=== PATIENT | female | born 1990 | race Caucasian/White ===

== ENCOUNTER → 2017-08-25 | Outpatient (REF) | payer OTHER ==
[2017-08-25 16:54] LABS: ALBUMIN 4.4 GM/DL (3.2-5.2); ALKALINE PHOSPHATASE 48 U/L (45-117); ALT/SGPT 35 U/L (12-78); ANION GAP 10 MEQ/L (8-16); AST/SGOT 27 U/L (7-37); BILIRUBIN,TOTAL 0.9 MG/DL (0.2-1.0); BLOOD UREA NITROGEN 11 MG/DL (7-18); CALCIUM LEVEL 9.1 MG/DL (8.5-10.1); CARBON DIOXIDE LEVEL 27 MEQ/L (21-32); CHLORIDE LEVEL 100 MEQ/L (98-107); CHOLESTEROL LEVEL 202 MG/DL (<200); CHOLESTEROL RISK RATIO 3.311 (<5); CREATININE FOR GFR 0.59 MG/DL (0.55-1.02); GLOMERULAR FILTRATION RATE > 60.0 (>60); GLUCOSE, FASTING 72 MG/DL (70-105); HDL CHOLESTEROL 61 MG/DL (>40); LDL CHOLESTEROL 126.4 MG/DL (<100); NON-HDL-C 141 MG/DL; POTASSIUM SERUM 4.1 MEQ/L (3.5-5.1); SODIUM LEVEL 137 MEQ/L (136-145); TOTAL PROTEIN 8.4 GM/DL (6.4-8.2); TRIGLYCERIDES LEVEL 73 MG/DL (<150)
[2017-08-26 10:47] LABS: RUBELLA IgG QUALITATIVE IMMUNE (IMMUNE)
[2017-08-27 08:07] LABS: MUMPS VIRUS IgG ANTIBODY 34.7 AU/mL (Immune >10.9)
== END ==
LOC: M LAB REF 15:39
DX: Z00.01 Encounter for general adult medical examination with abnormal findings (principal)

== ENCOUNTER → 2017-11-05 | Outpatient (REF) | payer BC | LOC: M LAB REF 16:27 | DX: J06.9 Acute upper respiratory infection, unspecified (principal) ==

== ENCOUNTER → 2018-02-02 | Outpatient (REF) | payer BC ==
[2018-02-10 09:18] LABS: HPV HYBRID CAPTURE II Positive (Negative)
== END ==
LOC: M LAB REF 17:28
DX: Z00.01 Encounter for general adult medical examination with abnormal findings (principal); Z12.4 Encounter for screening for malignant neoplasm of cervix
CPT/HCPCS: G0123

== ENCOUNTER → 2018-03-08 | Outpatient (REF) | payer BC | LOC: M SFHCWAGY 11:15 | DX: R87.810 Cervical high risk human papillomavirus (HPV) DNA test positive (principal); R87.610 Atypical squamous cells of undetermined significance on cytologic smear of cervix (ASC-US) | CPT/HCPCS: 88305 ==

== ENCOUNTER → 2018-09-07 | Outpatient (REF) | payer BC | LOC: M LAB REF 19:22 | PROVIDERS: ATTEND Nurse Practitioner Family | DX: R10.2 Pelvic and perineal pain (principal); R10.9 Unspecified abdominal pain ==

== ENCOUNTER → 2018-09-09 | Outpatient (REF) | payer BC ==
[2018-09-09 21:00] LABS: CHLAMYDIA DNA AMPLIFICATION NEGATIVE (NEGATIVE); GC DNA AMPLIFICATION NEGATIVE (NEGATIVE)
== END ==
LOC: M SFHCWAGY 17:14
PROVIDERS: ATTEND Nurse Practitioner Women's Health
DX: R10.2 Pelvic and perineal pain (principal)

== ENCOUNTER → 2018-11-08 | Outpatient (REF) | payer BC ==
[2018-11-08 14:02] LABS: INFLUENZA A AMPLIFICATION POSITIVE (NEGATIVE); INFLUENZA B AMPLIFICATION NEGATIVE (NEGATIVE)
== END ==
LOC: M LAB REF 13:00
PROVIDERS: ATTEND Physician Assistant Medical
DX: J11.1 Influenza due to unidentified influenza virus with other respiratory manifestations (principal)

== ENCOUNTER → 2019-02-01 | Outpatient (CLI) | payer BC ==
[2019-02-01 16:05] LABS: BASO % 0.5 % (0.0-1.0); EOS # 0.4 10^3/uL (0.0-0.50); EOS % 6.4 % (0.0-3.0); HEMOGLOBIN 12.9 g/dl (12.0-15.5); LYMPH # 2.6 10^3/uL (1.5-4.5); LYMPH % 41.5 % (24.0-44.0); MEAN CORPUSCULAR HEMOGLOBIN 30.8 pg (27.0-33.0); MEAN CORPUSCULAR HGB CONC 33.1 g/dl (32.0-36.5); MEAN CORPUSCULAR VOLUME 93.1 fl (80.0-96.0); MONO # 0.4 10^3/uL (0.0-0.8); MONO % 7.1 % (0.0-5.0); NEUTROPHILS # 2.8 10^3/uL (1.8-7.7); NEUTROPHILS % 44.3 % (36.0-66.0); PLATELET COUNT, AUTOMATED 261 10^3/uL (150-450); RED BLOOD COUNT 4.19 10^6/uL (4.00-5.40); WHITE BLOOD COUNT 6.2 10^3/uL (4.0-10.0)
[2019-02-01 16:21] LABS: ALBUMIN 3.7 GM/DL (3.2-5.2); ALT/SGPT 19 U/L (12-78); BILIRUBIN,TOTAL 0.6 MG/DL (0.2-1.0); BLOOD UREA NITROGEN 13 MG/DL (7-18); CALCIUM LEVEL 9.3 MG/DL (8.5-10.1); CARBON DIOXIDE LEVEL 28 MEQ/L (21-32); CHLORIDE LEVEL 105 MEQ/L (98-107); CREATININE FOR GFR 0.71 MG/DL (0.55-1.30); GLOMERULAR FILTRATION RATE > 60.0 (>60); GLUCOSE, FASTING 79 MG/DL (70-100); POTASSIUM SERUM 4.1 MEQ/L (3.5-5.1); RHEUMATOID FACTOR QUANT < 10.0 IU/ML (<15.0); SODIUM LEVEL 138 MEQ/L (136-145); TOTAL PROTEIN 7.7 GM/DL (6.4-8.2)
[2019-02-01 17:49] LABS: ERYTHROCYTE SEDIMENTATION RATE 11 mm/hr (0-20)
[2019-02-04 00:07] LABS: ANTINUCLEAR ANTIBODIES DIRECT Negative (Negative)
== END ==
LOC: M LAB 15:13
PROVIDERS: ATTEND Psychiatry & Neurology Neurology
DX: R55 Syncope and collapse (principal)

== ENCOUNTER 2019-04-19 16:15 | Emergency (ER) | payer BC ==
[~2019-04-19] VITALS: Ht 160 cm; Wt 77.3 kg
[2019-04-19] MEDS ORDERED: ZOLO50TA PO (16:18)
[2019-04-19] MEDS ORDERED: SING10TA32 PO (16:18)
[2019-04-19 17:09] LABS: BASO % 0.4 % (0.0-1.0); EOS # 0.4 10^3/uL (0.0-0.5); HEMATOCRIT 38.6 % (36.0-47.0); HEMOGLOBIN 13.2 g/dl (12.0-15.5); LYMPH # 2.1 10^3/uL (1.5-5.0); LYMPH % 29.5 % (24.0-44.0); MEAN CORPUSCULAR HEMOGLOBIN 32.1 pg (27.0-33.0); MEAN CORPUSCULAR HGB CONC 34.2 g/dl (32.0-36.5); MEAN CORPUSCULAR VOLUME 93.9 fl (80.0-96.0); MONO # 0.7 10^3/uL (0.0-0.8); MONO % 9.7 % (0.0-5.0); NEUTROPHILS # 3.8 10^3/uL (1.5-8.5); NEUTROPHILS % 55.3 % (36.0-66.0); PLATELET COUNT, AUTOMATED 235 10^3/uL (150-450); RED BLOOD COUNT 4.11 10^6/uL (4.00-5.40); WHITE BLOOD COUNT 6.9 10^3/uL (4.0-10.0)
[2019-04-19 17:37] LABS: ALBUMIN 3.7 GM/DL (3.2-5.2); ALT/SGPT 20 U/L (12-78); BILIRUBIN,DIRECT < 0.1 MG/DL (0.0-0.2); BILIRUBIN,TOTAL 0.3 MG/DL (0.2-1.0); BLOOD UREA NITROGEN 6 MG/DL (7-18); CALCIUM LEVEL 9.2 MG/DL (8.5-10.1); CARBON DIOXIDE LEVEL 30 MEQ/L (21-32); CHLORIDE LEVEL 106 MEQ/L (98-107); CREATININE FOR GFR 0.53 MG/DL (0.55-1.30); GLOMERULAR FILTRATION RATE > 60.0 (>60); GLUCOSE, FASTING 89 MG/DL (70-100); HCG, SERUM QUANTITATIVE 47011 MIU/ML; LIPASE 114 U/L (73-393); POTASSIUM SERUM 4.1 MEQ/L (3.5-5.1); SODIUM LEVEL 138 MEQ/L (136-145); TOTAL PROTEIN 7.6 GM/DL (6.4-8.2)
[2019-04-19] MEDS ORDERED: NS 1,000 ML IV ONE (19:15)
[2019-04-19] MEDS ORDERED: ACETAMINOPHEN 500 MG TAB PO ONE (19:15)
--- NOTE | 2019-04-19 20:45 | REPVR ---
EXAM: US First Trimester, Transabdominal EXAM DATE/TIME: 04/19/2019 8:12 PM CLINICAL HISTORY: 29 years old, female; complicated by abdominal or pelvic pain; Lower; First trimester; Gestational age or lmp: 11w1d; ; Additional info: Vaginal bleeding and cramping TECHNIQUE: Imaging protocol: Real-time transabdominal obstetrical ultrasound of the maternal pelvis and a first trimester , less than 14 weeks 0 days, with image documentation. COMPARISON: No relevant prior studies available. FINDINGS: GESTATION: Gestation: Single gestational sac demonstrated within the uterus. Single fetus in the gestational sac demonstrated. Heart rate: heart rate is 71 beats per minute. Placenta: Unremarkable. No subchorionic bleed. Amniotic fluid: Amniotic and chorionic fluid are normal for gestational age. BIOMETRY: Estimated gestational age: Gestational age based on crown-rump length is 11 weeks 1 day versus 6 weeks 2 days using LMP. [place]-Rump length: [place]-rump length 4.2 cm. MATERNAL: Uterus: Unremarkable. Cervix: Unremarkable. Right adnexa: Unremarkable. Left adnexa: Unremarkable. There is a 2 x 2 0.4 x 2.1 cm solid hypoechoic focus in the left ovary likely representing a corpus luteum. Intraperitoneal: No intraperitoneal free fluid. IMPRESSION: Unremarkable first trimester gestation of 11 weeks 1 day using crown-rump length rather than LMP. No abnormality is demonstrated. Detailed structural survey can be performed between 19-20 weeks if clinically desired. Electronically signed by: Bubba Dubois On 04/19/2019 20:45:10 PM
[2019-04-19] MEDS ORDERED: FLAG500T PO (21:45)
[2019-04-19 21:48] VITALS: BP 115/75
[2019-04-19] MEDS ORDERED: metroNIDAZOLE (FLAGYL) 500 MG TAB PO ONE (22:00)
[2019-04-19 23:08] LABS: CHLAMYDIA DNA AMPLIFICATION NEGATIVE (NEGATIVE); GC DNA AMPLIFICATION NEGATIVE (NEGATIVE)
== END 2019-04-19 21:58 | disposition home or self-care (01) ==
LOC: M ED 16:15
DX: O26.851 Spotting complicating pregnancy, first trimester (principal); O23.591 Infection of other part of genital tract in pregnancy, first trimester; Z3A.11 11 weeks gestation of pregnancy; Z79.899 Other long term (current) drug therapy

== ENCOUNTER → 2019-05-14 | Outpatient (CLI) | payer BC ==
[~2019-05-14] MED LIST: FLAG500T PO; SING10TA32 PO; ZOLO50TA PO
[2019-05-14 19:03] LABS: BASO % 0.2 % (0.0-1.0); EOS # 0.3 10^3/uL (0.0-0.5); EOS % 5.4 % (0.0-3.0); HEMATOCRIT 35.3 % (36.0-47.0); HEMOGLOBIN 11.9 g/dl (12.0-15.5); LYMPH # 1.6 10^3/uL (1.5-5.0); LYMPH % 30.1 % (24.0-44.0); MEAN CORPUSCULAR HEMOGLOBIN 31.9 pg (27.0-33.0); MEAN CORPUSCULAR HGB CONC 33.7 g/dl (32.0-36.5); MEAN CORPUSCULAR VOLUME 94.6 fl (80.0-96.0); MONO # 0.4 10^3/uL (0.0-0.8); MONO % 8.4 % (0.0-5.0); NEUTROPHILS # 2.9 10^3/uL (1.5-8.5); NEUTROPHILS % 55.7 % (36.0-66.0); PLATELET COUNT, AUTOMATED 251 10^3/uL (150-450); RED BLOOD COUNT 3.73 10^6/uL (4.00-5.40); WHITE BLOOD COUNT 5.2 10^3/uL (4.0-10.0)
[2019-05-14 20:31] LABS: CHLAMYDIA DNA AMPLIFICATION NEGATIVE (NEGATIVE); GC DNA AMPLIFICATION NEGATIVE (NEGATIVE)
[2019-05-16 10:35] LABS: HEPATITIS C VIRUS ABY INDEX 0.2 INDEX (<0.8); HIV 1&2 SCREEN CENTAUR NEGATIVE (NEGATIVE); RUBELLA IgG QUALITATIVE EQUIVOCAL (IMMUNE)
== END ==
LOC: M WUC 10:52
PROVIDERS: ATTEND Advanced Practice Midwife
DX: Z36.89 Encounter for other specified antenatal screening (principal)

== ENCOUNTER → 2019-07-01 | Outpatient (CLI) | payer BC ==
--- NOTE | 2019-07-01 19:29 | REP ---
Obstetric sonography: History: Supervision of , for anatomy. Findings: Scanning through the gravid uterus demonstrates a viable single intrauterine gestation in an oblique head to the maternal left lie. motion is observed and heart rate is recorded at 144 beats per minute. The placenta is posterior fundal grade zero without evidence of previa or abruption. Amniotic fluid is subjectively normal. Closed cervical length is 4.9 cm, viewed transabdominally. No extrauterine abnormalities observed. No anomaly is seen. spine is less than optimally seen due to position. The following additional anatomic structures are identified and felt to be unremarkable: cranium, choroid plexus, cavum, cerebellum and posterior fossa, face and profile, lungs, four-chamber heart with left and right ventricular outflow tract views, diaphragm, left-sided stomach, abdominal wall cord insertion, three-vessel umbilical cord, kidneys and bladder, upper and lower extremities. Biometry chart: BPD 5.3 cm 22 weeks 1 day head circumference 18.7 cm 21 weeks 0 days abdominal circumference 16.2 cm 21 weeks 2 days femur length 3.5 cm 21 weeks 0 days humeral length 3.5 cm 21 weeks 6 days HC/AC ratio normal 1.16, cephalic index normal 0.82 estimated weight 405 grams, 0 pounds 14 ounces, 35th percentile for 21 weeks 4 days. Impression: Viable single intrauterine gestation at 21 weeks 3 days by today's composite sonographic criteria. Expected gestational age estimate based on prior sonography is 21 weeks 4 days. CLAIRE by prior sonography November 07, 2019. spine is less than optimally seen. Otherwise anatomic survey is complete. Electronically Signed by Feliciano Desir MD 07/01/2019 07:54 P
== END ==
LOC: M RAD 17:47
PROVIDERS: ATTEND Advanced Practice Midwife
DX: Z34.82 Encounter for supervision of other normal pregnancy, second trimester (principal)

== ENCOUNTER 2019-08-06 10:55 | Emergency (ER) | payer OTHER, MEDICAID ==
[~2019-08-06] VITALS: Ht 160 cm; Wt 80.0 kg
[2019-08-06] MEDS ORDERED: FLON1SPR NARES (11:16)
[2019-08-06] MEDS ORDERED: PREN29TA4 PO (11:16)
--- NOTE | 2019-08-06 13:20 | REP ---
REASON: Pain after trauma. FINDINGS: No acute fracture or destructive osseous lesion. Electronically Signed by Jac Herndon DO 08/06/2019 01:25 P
--- NOTE | 2019-08-06 13:22 | REP ---
REASON: Pain after trauma. A two view examination can not rule out a fracture. A trauma series consists of four views. Limited two view exam shows no fracture. Electronically Signed by Jac Herndon DO 08/06/2019 01:25 P
[2019-08-06 13:37] LABS: BASO % 0.4 % (0.0-1.0); EOS # 0.2 10^3/uL (0.0-0.5); EOS % 3.8 % (0.0-3.0); HEMOGLOBIN 11.7 g/dl (12.0-15.5); LYMPH # 1.1 10^3/uL (1.5-5.0); LYMPH % 19.4 % (24.0-44.0); MEAN CORPUSCULAR HEMOGLOBIN 31.5 pg (27.0-33.0); MEAN CORPUSCULAR HGB CONC 33.4 g/dl (32.0-36.5); MEAN CORPUSCULAR VOLUME 94.1 fl (80.0-96.0); MONO # 0.5 10^3/uL (0.0-0.8); MONO % 9.3 % (0.0-5.0); NEUTROPHILS # 3.6 10^3/uL (1.5-8.5); NEUTROPHILS % 66.6 % (36.0-66.0); PLATELET COUNT, AUTOMATED 206 10^3/uL (150-450); RED BLOOD COUNT 3.72 10^6/uL (4.00-5.40); WHITE BLOOD COUNT 5.5 10^3/uL (4.0-10.0)
--- NOTE | 2019-08-06 13:47 | REP ---
REASON: Assess for ascites. Four quadrant ultrasound shows no free fluid. Electronically Signed by Jac Herndon DO 08/06/2019 01:57 P
[2019-08-06 13:48] LABS: INR 0.94; PROTHROMBIN TIME 12.3 SECONDS (11.8-14.0)
[2019-08-06 14:11] VITALS: BP 123/78
[2019-08-06 14:23] LABS: ALBUMIN 2.9 GM/DL (3.2-5.2); ALT/SGPT 122 U/L (12-78); BILIRUBIN,DIRECT < 0.1 MG/DL (0.0-0.2); BILIRUBIN,TOTAL 0.3 MG/DL (0.2-1.0); BLOOD UREA NITROGEN 5 MG/DL (7-18); CALCIUM LEVEL 8.7 MG/DL (8.5-10.1); CARBON DIOXIDE LEVEL 22 MEQ/L (21-32); CHLORIDE LEVEL 111 MEQ/L (98-107); CREATININE FOR GFR 0.46 MG/DL (0.55-1.30); GLOMERULAR FILTRATION RATE > 60.0 (>60); GLUCOSE, FASTING 67 MG/DL (70-100); HCG, SERUM QUANTITATIVE 6599 MIU/ML; LIPASE 93 U/L (73-393); POTASSIUM SERUM 3.9 MEQ/L (3.5-5.1); SODIUM LEVEL 141 MEQ/L (136-145); TOTAL PROTEIN 6.9 GM/DL (6.4-8.2)
--- NOTE | 2019-08-07 08:00 | REP ---
REASON: Trauma. Limited OB ultrasound was obtained. Multiple ultrasonographic images of the gravid uterus show a single living intrauterine gestation in the cirilo breech presentation. Doppler interrogation of the heart shows a heart rate of 150 beats per minute. The placenta is posterior fundal and not low lying. The subjective amniotic fluid volume is within normal limits. The cervix measures 5 cm in and length and is closed. biophysical scores: 2 breathing 2 movement 2 tone 2 amniotic fluid volume Giving a sum total of 8/8. No further imaging was requested. IMPRESSION:Limited OB ultrasound as described above. Electronically Signed by Jac Herndon DO 08/07/2019 08:59 A
== END 2019-08-06 14:13 | disposition admitted as inpatient to this hospital (09) ==
LOC: EDBD 10:55 → M ED 10:55
DX: Z04.1 Encounter for examination and observation following transport accident (principal); Z3A.26 26 weeks gestation of pregnancy; Z79.899 Other long term (current) drug therapy

== ENCOUNTER 2019-08-06 14:22 | Outpatient (CLI) | payer OTHER, MEDICAID ==
[~2019-08-06] VITALS: Ht 160 cm; Wt 79.2 kg
[~2019-08-06 14:22] MED LIST changes: +FLON1SPR NARES; +PREN29TA4 PO
[2019-08-06 14:38] VITALS: BP 132/73
[2019-08-06 14:39] VITALS: BP 125/73
== END 2019-08-06 16:38 | disposition home or self-care (01) ==
LOC: M LDO 14:22
PROVIDERS: ATTEND Obstetrics & Gynecology
DX: O9A.212 Injury, poisoning and certain other consequences of external causes complicating pregnancy, second trimester (principal); S20.319A Abrasion of unspecified front wall of thorax, initial encounter; Z3A.26 26 weeks gestation of pregnancy
CPT/HCPCS: G0378; G0463

== ENCOUNTER → 2019-08-18 | Outpatient (CLI) | payer BC, MEDICAID ==
--- NOTE | 2019-08-18 20:53 | REP ---
Clinical: Anatomical evaluation. Comparison: 08/06/2019 . Findings: Examination demonstrates a single live intrauterine in cephalic presentation. motion is identified by technologist. Placenta is noted posterior and grade I without evidence for placenta previa or abruption. Amniotic fluid volume is normal. Cervix measures 4.6 cm in length and appears closed. Nuchal cord cannot be excluded. Gestational age by LMP 28 weeks 3 days with CLAIRE 11/07/2019 . Gestational age by current measurements 28 weeks 3 days with CLAIRE 11/07/2019 . FHR equals 144 beats per minute. Estimated weight 1228 grams ( 43rd percentile). Amniotic fluid: 14.3 cm Anatomical assessment demonstrates normal structures including cranium, choroid plexus, cavum, cerebellum/posterior fossa, facial features, lungs, four-chamber heart/ventricular outflow tracts, diaphragm, stomach, cord insertion, kidneys/bladder, spine, and upper extremities. Impression: Single live intrauterine in cephalic presentation demonstrating appropriate interval growth. In conjunction with prior examination anatomical assessment is complete and normal. No gross abnormalities are identified. 2. Nuchal cord cannot be excluded. Electronically Signed by Rafael Nickerson MD 08/18/2019 08:44 P
== END ==
LOC: M RAD 17:14
PROVIDERS: ATTEND Advanced Practice Midwife
DX: Z36.2 Encounter for other antenatal screening follow-up (principal); Z3A.28 28 weeks gestation of pregnancy

== ENCOUNTER → 2019-08-18 | Outpatient (CLI) | payer BC, MEDICAID ==
[2019-08-18 20:36] LABS: HEMATOCRIT 34.4 % (36.0-47.0); HEMOGLOBIN 11.3 g/dl (12.0-15.5); MEAN CORPUSCULAR HGB CONC 32.8 g/dl (32.0-36.5); MEAN CORPUSCULAR VOLUME 94.2 fl (80.0-96.0); PLATELET COUNT, AUTOMATED 218 10^3/uL (150-450); RED BLOOD COUNT 3.65 10^6/uL (4.00-5.40); WHITE BLOOD COUNT 7.6 10^3/uL (4.0-10.0)
== END ==
LOC: M LRY 13:50
PROVIDERS: ATTEND Advanced Practice Midwife
DX: Z34.82 Encounter for supervision of other normal pregnancy, second trimester (principal)

== ENCOUNTER → 2019-08-26 | Outpatient (CLI) | payer MEDICAID, OTHER | LOC: M LAB 07:58 | PROVIDERS: ATTEND Advanced Practice Midwife | DX: O99.810 Abnormal glucose complicating pregnancy (principal); Z3A.00 Weeks of gestation of pregnancy not specified ==

== ENCOUNTER → 2019-10-19 | Outpatient (REF) | payer MEDICAID, OTHER | LOC: M SFHCWAGY 16:51 | PROVIDERS: ATTEND Obstetrics & Gynecology | DX: Z34.93 Encounter for supervision of normal pregnancy, unspecified, third trimester (principal) ==

== ENCOUNTER 2019-11-18 07:09 | Inpatient (IN) | payer OTHER ==
[~2019-11-18] VITALS: Ht 160 cm; Wt 89.8 kg
[2019-11-18] VITALS (25 sets, daily range): BP systolic 104–147; BP diastolic 63–88
[2019-11-18] MEDS ORDERED: OXYTOCIN DRIP 30 UNITS in IV 1 EA IV SCH (08:45)
[2019-11-18 08:59] LABS: HEMATOCRIT 35.5 % (36.0-47.0); HEMOGLOBIN 12.2 g/dl (12.0-15.5); MEAN CORPUSCULAR HGB CONC 34.4 g/dl (32.0-36.5); MEAN CORPUSCULAR VOLUME 90.3 fl (80.0-96.0); PLATELET COUNT, AUTOMATED 189 10^3/uL (150-450); RED BLOOD COUNT 3.93 10^6/uL (4.00-5.40); WHITE BLOOD COUNT 7.7 10^3/uL (4.0-10.0)
[2019-11-18] MEDS: LR 1,000 ML IV SCH ×2 (09:07→12:58)
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
[2019-11-18 11:37] LABS: ALT/SGPT 20 U/L (12-78); BILIRUBIN,TOTAL 0.3 MG/DL (0.2-1.0); CREATININE FOR GFR 0.56 MG/DL (0.55-1.30); GLOMERULAR FILTRATION RATE > 60.0 (>60); LDH LACTATE DEHYDROGENASE 171 U/L (84-246); URIC ACID 5.4 MG/DL (2.6-6.0)
[2019-11-18 11:58] LABS: CREATININE,RANDOM URINE 26.1 MG/DL; TOTAL PROTEIN,RANDOM URINE 12.3 MG/DL (0.0-12.0)
[2019-11-18] MEDS ORDERED: ALBUTEROL 90 MCG/ACT 8GM HFA INHALER INH PRN (13:15)
--- NOTE | 2019-11-18 16:18 | IPNPDOC ---
Text Note Date of Service The patient was seen on 11/18/19. NOTE Progress Pitocin @ 14mu Cat I tracing UC 2-3 minutes apart SVE 380/-3 AROM moderate amount clear fluid Anticipate progress and NSVB VS,Fishbone, I+O VS, Fishbone, I+O Laboratory Tests 11/18/19 08:42 Vital Signs Date Time Temp Pulse Resp B/P (MAP) Pulse Ox O2 Delivery O2 Flow Rate FiO2 11/18/19 16:08 97.4 20 11/18/19 15:59 74 117/74 (88) Lisa Rodriguez CNM Nov 18, 2019 16:18
[2019-11-18] MEDS ORDERED: BUTORPHANOL 2 MG/ML INJ (J0595) As Ordered ONE (17:08)
[2019-11-18] MEDS ORDERED: PROMETHAZINE INJ 25 MG/ML VIAL (J2550) As Ordered ONE (17:08)
[2019-11-18] MEDS ORDERED: PROMETHAZINE INJ 25 MG/ML VIAL (J2550) IV ONE (17:15)
[2019-11-18] MEDS ORDERED: BUTORPHANOL 2 MG/ML INJ (J0595) IV ONE (17:15)
--- NOTE | 2019-11-18 17:44 | IPNPDOC ---
Text Note Date of Service The patient was seen on 11/18/19. NOTE S: Feeling contractions O: Pitocin @ 16mu 140 bpm, mod variability, Cat I tracing [place]: contractions 2-3 minutes apart SVE: /-2 A: at 41+0 EGA presented to L&D for IOL 2/2 postdates P: Stadol and Phenergan for coping Anticipate progress and NSVB VS,Fishbone, I+O VS, Fishbone, I+O Laboratory Tests 11/18/19 08:42 Vital Signs Date Time Temp Pulse Resp B/P (MAP) Pulse Ox O2 Delivery O2 Flow Rate FiO2 11/18/19 17:15 20 11/18/19 16:08 97.4 11/18/19 15:59 74 117/74 (88) GME ATTESTATION GME ATTESTATION My faculty preceptor for this patient encounter was physically present during the encounter and was fully available. All aspects of the patient interview, examination, medical decision making process, and medical care plan development were reviewed and approved by the faculty preceptor. The faculty preceptor is aware and concurs with the plan as stated in the body of this note and will attest to such by his/her cosignature. CACHORRO MENDOZA D.O. Nov 18, 2019 17:44
--- NOTE | 2019-11-18 19:09 | DNPDOC ---
[facility] Delivery Note Delivery Note DATE OF DELIVERY: 11/18/2019 PREDELIVERY DIAGNOSIS: 41+0/7 weeks' gestation and induction of labor. POST DELIVERY DIAGNOSIS: Delivered. PROCEDURE: Spontaneous vaginal delivery. CURING PRESS MAINTAINER: Dr. Cachorro Mendoza DO CONSULTANTS INTERN: Lisa Morales CNM ANESTHESIA: Lidocaine. ESTIMATED BLOOD LOSS: 150 mL. FINDINGS: 8 pound 4 ounce male , Score 8/9, no nuchal cord. DELIVERY SUMMARY: Patient is a 29-year-old 4 now para 2-0-2-2 who was admitted to labor and delivery for induction of labor for postdates. After a short second stage, the patient spontaneously delivered an 8 pound 4 ounce male infant, weighing 3800 grams at 1837 hours. The delivered straight occiput anterior, and restituted right occiput anterior. The shoulders delivered with ease, followed by the corpus and terminal meconium. The infant cried spontaneously and was handed to the mother. scores were 8 and 9. The cord was doubly clamped and cut by the father of the baby. The placenta was delivered spontaneously at 1846 hours and appeared to be intact . The patient re ceived IV pitocin immediately after delivery of the placenta. Patient had a 1st degree laceration that was repaired with 3-0 Rapide in the usual fashion. Sponge counts were correct. The parents have named their baby "Reza." GME ATTESTATION GME ATTESTATION My faculty preceptor for this patient encounter was physically present during the encounter and was fully available. All aspects of the patient interview, examination, medical decision making process, and medical care plan development were reviewed and approved by the faculty preceptor. The faculty preceptor is aware and concurs with the plan as stated in the body of this note and will attest to such by his/her cosignature. CACHORRO MENDOZA D.O. Nov 18, 2019 19:09
[2019-11-18] MEDS ORDERED: ACETAMINOPHEN 500 MG TAB PO PRN (19:15)
[2019-11-18] MEDS ORDERED: IBUPROFEN 600 MG TAB PO PRN (19:15)
[2019-11-18] MEDS ORDERED: RHOGAM 300 MCG (1500 IU) INJ (J2790) IM SCH (19:15)
[2019-11-18] MEDS ORDERED: DIBUCAINE 1% OINTMENT 30GM TOP PRN (19:15)
[2019-11-18] MEDS ORDERED: MOM 30ML SUSPENSION UDC PO PRN (19:15)
[2019-11-18] MEDS ORDERED: ANUSOL HC CREAM 30GM TOP PRN (19:15)
[2019-11-18] MEDS ORDERED: DOCUSATE SODIUM 100 MG CAP PO PRN (19:15)
[2019-11-18] MEDS ORDERED: ACETAMINOPHEN TAB 650MG DOSE (2X325MG) PO PRN (19:15)
[2019-11-18] MEDS ORDERED: LIDOCAINE 1% MDV 20ML VIAL INFIL ONE (19:15)
[2019-11-18] MEDS ORDERED: METHYLERGONOVINE MALEATE 0.2 MG TAB PO PRN (19:15)
[2019-11-18] MEDS ORDERED: IBUPROFEN 800 MG TAB PO PRN (19:15)
[2019-11-18] MEDS ORDERED: MEASLES,MUMPS,RUBELLA VACCINE INJ (MMR-II) (90707) SC SCH (19:15)
[2019-11-19 06:00] VITALS: BP 119/65
--- NOTE | 2019-11-19 06:24 | IPNPDOC ---
Text Note Date of Service The patient was seen on 11/19/19. NOTE SUBJECT: Patient is a 29-year-old 4 now para 2-0-2-2 status post at 41+0/7 weeks' gestation of a 8 pound 4 ounce male . She delivered, at approximately 1837 hours on 11/18/2019 doing well day #1. She has been ambulating, voiding spontaneously without issue and tolerating regular diet. Reports her pain is well controlled. Patient is ambulating well. Voiding without difficulty. OBJECTIVE: VITAL SIGNS: Within normal limits, afebrile. Alert and oriented times three. Breath sounds clear to auscultation. Heart rate: Regular rate and rhythm, no murmurs, rubs or gallops. Abdomen: Fundus firm at U. Soft, nontender. ASSESSMENT: Patient is a 29-year-old 4 now para 2-0-2-2 status post at 41+0/7 weeks' gestation of a 8 pound 4 ounce male infant. She delivered, at approximately 1837 hours on 11/18/2019 doing well day #1. Vitals within normal limits, afebrile, hemodynamically stable with no evidence of infection. PLAN: 1. Continue routine care, anticipate D/C tomorrow. 2. Tylenol and Motrin for pain. 3. Encourage ambulation. 4. Routine PP visit in 6 weeks in clinic. VS,Fishbone, I+O VS, Fishbone, I+O Laboratory Tests 11/18/19 08:42 Vital Signs Date Time Temp Pulse Resp B/P (MAP) Pulse Ox O2 Delivery O2 Flow Rate FiO2 11/19/19 06:00 97.8 86 16 119/65 (83) I&O- Last 24 Hours up to 6 AM 11/19/19 06:00 Intake Total 2657 ml Output Total 1075 ml Balance 1582 ml GME ATTESTATION GME ATTESTATION My faculty preceptor for this patient encounter was physically present during the encounter and was fully available. All aspects of the patient interview, examination, medical decision making process, and medical care plan development were reviewed and approved by the faculty preceptor. The faculty preceptor is aware and concurs with the plan as stated in the body of this note and will attest to such by his/her cosignature. CACHORRO MENDOZA D.O. Nov 19, 2019 06:24
[2019-11-19] MEDS: SERTRALINE HCL 50 MG TAB PO SCH (09:00)
[2019-11-19] MEDS: PRENATAL VITAMINS CHEWABLE TABLET PO SCH ×2 (09:00→15:13)
[2019-11-19 17:48] VITALS: BP 129/76
[2019-11-20 05:50] VITALS: BP 130/66
[2019-11-20] MEDS: PRENATAL VITAMINS CHEWABLE TABLET PO SCH (08:30)
[2019-11-20] MEDS: SERTRALINE HCL 50 MG TAB PO SCH (08:30)
== END 2019-11-20 15:15 | disposition home or self-care (01) | DRG 560 ==
LOC: M LDI 07:09 → M OBS 20:50
PROVIDERS: ADMIT Advanced Practice Midwife; ATTEND Advanced Practice Midwife
PROC: 10E0XZZ Delivery of Products of Conception, External Approach (ICD-10-PCS; principal; 2019-11-18)
PROC: 0HQ9XZZ Repair Perineum Skin, External Approach (ICD-10-PCS; 2019-11-18)
PROC: 10907ZC Drainage of Amniotic Fluid, Therapeutic from Products of Conception, Via Natural or Artificial Opening (ICD-10-PCS; 2019-11-18)
PROC: 3E033VJ Introduction of Other Hormone into Peripheral Vein, Percutaneous Approach (ICD-10-PCS; 2019-11-18)
DX: O48.0 Post-term pregnancy (principal); O70.0 First degree perineal laceration during delivery; Z3A.41 41 weeks gestation of pregnancy; Z37.0 Single live birth

== ENCOUNTER → 2020-02-16 | Outpatient (REF) | payer OTHER | LOC: M SFHCWAGY 08:54 | PROVIDERS: ATTEND Advanced Practice Midwife | DX: Z12.4 Encounter for screening for malignant neoplasm of cervix (principal); R87.610 Atypical squamous cells of undetermined significance on cytologic smear of cervix (ASC-US) ==

== ENCOUNTER → 2020-04-09 | Outpatient (REF) | payer OTHER | LOC: M LAB REF 15:00 | PROVIDERS: ATTEND Specialist | DX: R87.610 Atypical squamous cells of undetermined significance on cytologic smear of cervix (ASC-US) (principal) ==

== ENCOUNTER → 2020-06-17 | Outpatient (CLI) | payer OTHER ==
[2020-06-17 15:34] LABS: BASO % 0.3 % (0.0-1.0); EOS # 0.3 10^3/uL (0.0-0.5); EOS % 4.6 % (0.0-3.0); HEMATOCRIT 37.2 % (36.0-47.0); LYMPH # 1.8 10^3/uL (1.5-5.0); LYMPH % 25.1 % (24.0-44.0); MEAN CORPUSCULAR HEMOGLOBIN 30.3 pg (27.0-33.0); MEAN CORPUSCULAR HGB CONC 32.3 g/dl (32.0-36.5); MEAN CORPUSCULAR VOLUME 93.9 fl (80.0-96.0); MONO # 0.4 10^3/uL (0.0-0.8); MONO % 5.1 % (0.0-5.0); NEUTROPHILS # 4.7 10^3/uL (1.5-8.5); NEUTROPHILS % 64.8 % (36.0-66.0); PLATELET COUNT, AUTOMATED 265 10^3/uL (150-450); RED BLOOD COUNT 3.96 10^6/uL (4.00-5.40); WHITE BLOOD COUNT 7.2 10^3/uL (4.0-10.0)
[2020-06-18 11:30] LABS: HEPATITIS B SURFACE ANTIGEN NEGATIVE (NEGATIVE); HEPATITIS C VIRUS ABY INDEX 0.1 INDEX (<0.8); HIV 1&2 SCREEN CENTAUR NEGATIVE (NEGATIVE)
== END ==
LOC: M LAB 15:05
PROVIDERS: ATTEND Obstetrics & Gynecology
DX: Z34.91 Encounter for supervision of normal pregnancy, unspecified, first trimester (principal); Z3A.00 Weeks of gestation of pregnancy not specified

== ENCOUNTER → 2020-07-31 | Outpatient (CLI) | payer OTHER ==
--- NOTE | 2020-07-31 10:34 | REP ---
INDICATION: ANATOMY. COMPARISON: None. TECHNIQUE: Transabdominal ultrasound of the gravid uterus. FINDINGS: There is a single intrauterine gestation in a transverse lie with the head to the maternal right. The placenta is anterior with grade 0 maturity. There is no placenta previa. The cervix measures 3.5 cm length. The placental cord insertion could not be adequately visualized. The cord insertion is unremarkable. There is a three-vessel cord. heart rate is 155 beats per minute. The composite ultrasound gestational age today is 18 weeks 3 days. The CLAIRE is 12/29/2020. Gestational age by LMP is 18 weeks 5 days with an CLAIRE of 12/27/2020. Estimated weight is 233 g, 0 lb-8 oz. This is the 24th percentile for 18 weeks 5 days. The following anatomic structures are identified and are unremarkable: Cranium, cavum septum pellucidum, falx, intracranial ventricles, choroid plexus, cerebellum, cisterna magna, face, upper lip, four-chamber heart, cardiac right left ventricular outflow tracts, diaphragm, stomach, right and left kidneys, bladder, spine, right left upper extremities, right and left lower extremities, 3 vessel cord. No anomalies are identified. IMPRESSION: No anomalies are identified. Eighteen week 3 day intrauterine gestation. <Electronically signed by Alberto Hilton > 07/31/20 [id number]
== END ==
LOC: M WHC 08:46
PROVIDERS: ATTEND Advanced Practice Midwife
DX: Z34.02 Encounter for supervision of normal first pregnancy, second trimester (principal); Z3A.18 18 weeks gestation of pregnancy

== ENCOUNTER → 2020-08-20 | Outpatient (CLI) | payer OTHER | LOC: M WHC 09:20 | PROVIDERS: ATTEND Obstetrics & Gynecology | DX: Z34.92 Encounter for supervision of normal pregnancy, unspecified, second trimester (principal); Z3A.21 21 weeks gestation of pregnancy; Z53.9 Procedure and treatment not carried out, unspecified reason ==

== ENCOUNTER → 2020-09-14 | Outpatient (REF) | payer OTHER | LOC: M PLALAB 17:39 | PROVIDERS: ATTEND Obstetrics & Gynecology | DX: Z34.82 Encounter for supervision of other normal pregnancy, second trimester (principal) ==

== ENCOUNTER → 2020-09-24 | Outpatient (CLI) | payer OTHER ==
--- NOTE | 2020-09-24 15:18 | REP ---
INDICATION: F/U ANATOMY COMPARISON: 07/31/2020 TECHNIQUE: Transabdominal obstetrical ultrasound with color Doppler evaluation. FINDINGS: Examination demonstrates a single live intrauterine in cephalic presentation. motion is identified by technologist. Placenta is noted anterior and grade 2 without evidence for placenta previa or abruption. Amniotic fluid volume is normal. Cervix appears closed. Gestational age by LMP 26 weeks 4 days with CLAIRE 12/27/2020. Gestational age by current measurements 26 weeks 1 day with CLAIRE 12/30/2020. FHR equals 136 beats per minute. Estimated weight 923 grams (29thpercentile). Anatomical assessment demonstrates normal 3 vessel cord and normal cord insertion. IMPRESSION: Single live intrauterine in cephalic presentation. No gross abnormalities are identified. <Electronically signed by Rafael Nickerson > 09/24/20 [id number]
== END ==
LOC: M WHC 09:35
PROVIDERS: ATTEND Obstetrics & Gynecology
DX: Z36.2 Encounter for other antenatal screening follow-up (principal); Z3A.21 21 weeks gestation of pregnancy

== ENCOUNTER → 2020-10-08 | Outpatient (REF) | payer MEDICAID, OTHER ==
[2020-10-08 14:16] LABS: HEMATOCRIT 35.9 % (36.0-47.0); HEMOGLOBIN 11.7 g/dl (12.0-15.5); MEAN CORPUSCULAR HEMOGLOBIN 30.6 pg (27.0-33.0); MEAN CORPUSCULAR HGB CONC 32.6 g/dl (32.0-36.5); PLATELET COUNT, AUTOMATED 223 10^3/uL (150-450); RED BLOOD COUNT 3.82 10^6/uL (4.00-5.40); WHITE BLOOD COUNT 7.9 10^3/uL (4.0-10.0)
== END ==
LOC: M PLALAB 08:48
PROVIDERS: ATTEND Obstetrics & Gynecology
DX: Z34.82 Encounter for supervision of other normal pregnancy, second trimester (principal); Z3A.00 Weeks of gestation of pregnancy not specified

== ENCOUNTER → 2020-12-03 | Outpatient (REF) | payer OTHER | LOC: M PLALAB 17:55 | PROVIDERS: ATTEND Obstetrics & Gynecology | DX: Z36.85 Encounter for antenatal screening for Streptococcus B (principal); Z3A.36 36 weeks gestation of pregnancy ==

== ENCOUNTER → 2020-12-04 | Outpatient (CLI) | payer OTHER | LOC: M WHC 11:46 | PROVIDERS: ATTEND Obstetrics & Gynecology | DX: O26.843 Uterine size-date discrepancy, third trimester (principal) ==

== ENCOUNTER → 2020-12-04 | Outpatient (REF) | payer OTHER | LOC: M SFHCWAGY 13:47 | PROVIDERS: ATTEND Obstetrics & Gynecology | DX: Z36.89 Encounter for other specified antenatal screening (principal); Z3A.36 36 weeks gestation of pregnancy ==

== ENCOUNTER → 2020-12-11 | Outpatient (CLI) | payer OTHER ==
--- NOTE | 2020-12-11 12:18 | REP ---
INDICATION: GROWTH - SIZE/DATE DISCREPANCY. COMPARISON: 09/24/2020, 07/31/2020. TECHNIQUE: Real-time sonographic evaluation of the gravid uterus performed. FINDINGS: Estimated gestational age is37 weeks 5 days, EDC 12/27/2020. Today's measurements indicate appropriate growth. Presentation: Cephalic Placenta anterior, grade 2, without evidence of placenta previa. heart rate is recorded at 136 beats per minute. Amniotic fluid is subjectively normal. ABBIE 13.4, normal range 7.4-24.1. Closed cervical length is measured at 3.1 cm. Biometry chart: BPD: 92 mm, 37 weeks 1 days, 43rd percentile. HC: 326 mm, 37 weeks 0 days, 39th percentile AC: 336 mm, 37 weeks 4 days, 48th percentile Femur length: 73 mm, 37 weeks 2 days, 44th percentile HC to AC ratio: 0.97, normal range 0.91-1.10. Estimated weight: 3196g, 52nd percentile. SD ratio umbilical artery 2.56, normal 1.56-3.38. RI 0.61, normal range 0.42-0.70. IMPRESSION: Viable single intrauterine gestation as above. <Electronically signed by Alberto Cabello > 12/11/20 [id number]
== END ==
LOC: M WHC 10:01
PROVIDERS: ATTEND Obstetrics & Gynecology
DX: O26.843 Uterine size-date discrepancy, third trimester (principal)

== ENCOUNTER 2020-12-29 08:20 | Inpatient (IN) | payer OTHER ==
[2020-12-29] VITALS (7 sets, daily range): BP systolic 110–133; BP diastolic 68–89
[~2020-12-29] VITALS: Ht 160 cm; Wt 93.3 kg
[2020-12-29] MEDS ORDERED: ZYRTTAB8 PO (08:57)
[2020-12-29] MEDS ORDERED: LACTATED RINGER'S 1000 ML IV STA (10:11)
[2020-12-29] MEDS ORDERED: LR 1,000 ML IV SCH (10:15)
[2020-12-29] MEDS ORDERED: METHYLERGONOVINE MALEATE 0.2 MG/ML VIAL (J2210) IM PRN (10:15)
[2020-12-29] MEDS ORDERED: OXYTOCIN DRIP 30 UNITS in IV 1 EA IV PRN (10:15)
[2020-12-29] MEDS ORDERED: miSOPROStol 50MCG 1/2 TABLET PV ONE (10:30)
--- NOTE | 2020-12-29 10:38 | HPEPDOC ---
Obstetrical History & Physical General Date of Admission December 29, 2020 at 08:20 History of Present Illness Sania is a 30yo with SIUP at 40w2d by lmp c/w 8wk u/s presenting today fo r elective IOL at term. No regular/painful ctx, no LOF, no vaginal bleeding. Feels good movement. 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 History: Abnormal Pap (ASCUS HPV pos), History of STD (HPV and CT prior to ) Past Medical History Medical History environmental allergies taking zyrtec, anxiety/depression on no meds during Surgical History: Denies/None Family History Significant Family History: No pertinent family hx Social History Marital Status: Family situation: Spouse/partner home Psychosocial History: Anxiety, Depression * Smoker: non-smoker Alcohol: Denies Drugs: denies Imunizations Tdap status: current Allergies Coded Allergies: Animal Dander (Verified Allergy, Mild, itchy, 12/29/20) SEASONAL ALLERGIES (Verified Allergy, Mild, itchy, 12/29/20) No Known Drug Allergies (Verified Allergy, Unknown, 04/19/19) Medications Scheduled Prenat 115/Iron Fum/Folic/Dss ( 19 Tablet) 1 Each Tablet, 1 TAB PO DAILY Miscellaneous Medications Cetirizine HCl/Pseudoephedrine (Zyrtec-D Tablet) 1 Each Tab.er.12h, 1 TAB PO Physical Examination Physical Examination GENERAL: Alert and oriented times three. ABDOMEN: Gravid and non-tender to touch. FETUS: Is vertex (VTX) by sterile vaginal examination (SVE) EXTREMITIES: No edema of BLE Laboratory Data 24H LABS Laboratory Tests 2 12/29/20 08:43: Serology Scanned Report Hepatitis B Testing Pertinent Laboratoy Data Blood Type: A+ RBC Antibody Screen: Negative HIV: Negative Hepatitis B: Negative Hepatitis C: Negative Rapid Plasma Reagin: Nonreactive Rubella: Immune Chlamydia/Gonorrhea: Negative Group B Streptococcus: Negative Glucose Tolerance Test: 118 Anatomy Ultrasound Ultrasound Date: Jul 31, 2020 Placenta Location: Anterior Normal Anatomy: Yes Placenta Previa: No Other Ultrasounds 09/24/20: normal 3 vessel cord and insertion. 12/11/20 growth u/s for s>d: 52%ile Steroid Therapy Steroid Therapy: No Vaginal Examination Dilation: 3 cm Effacement: 50% Station: -2 Cervical Consistency: Medium Cervical Position: Middle Presentation: Cephalic presentation Assessment Heart Rate (FHR): 125 Variability: Moderate Accelerations: Positive Decelerations: None Tocometer Contractions: Yes Frequency: irregular Assessment/Plan Assessment Sania is a 30yo with SIUP at 40w2d by lmp c/w 8wk u/s admitted for IOL. Vitals wnl, benign exam. Cat I FHRT with +accels/-decels, mod michel. GBS negative. Cephalic by SCE, 2-3/50/-2. Benign PMhx and course. Hx of x2 prior. 50mcg cytotec placed PV and hui cervical bulb with 40cc NS at 1030am. Plan Admit and orient. On Call and consent. Diet: regular for now, then clear liquids as labor progresses Group B Streptococcus (GBS) negative Labs and intravenous (IV) per unit protocol. Counseled on cytotec, hui bulb, Pitocin and induction of labor (IOL). Will re-assess in 4hr and either re-dose cytotec or start IV pitocin if patient does not progress into labor on her own. Lactated Ringers (LR): Bolus 800 mL, then at 125 mL/hr. Anticipate normal spontaneous delivery () Candidate for IV stadol in early labor if desired or epidural in active labor MD Ciarra Reina Katrina D MD December 29, 2020 10:22
[2020-12-29 10:52] LABS: HEMATOCRIT 38.4 % (36.0-47.0); HEMOGLOBIN 12.8 g/dl (12.0-15.5); MEAN CORPUSCULAR HEMOGLOBIN 30.9 pg (27.0-33.0); MEAN CORPUSCULAR HGB CONC 33.3 g/dl (32.0-36.5); MEAN CORPUSCULAR VOLUME 92.8 fl (80.0-96.0); PLATELET COUNT, AUTOMATED 202 10^3/uL (150-450); RED BLOOD COUNT 4.14 10^6/uL (4.00-5.40); WHITE BLOOD COUNT 8.7 10^3/uL (4.0-10.0)
[2020-12-29] MEDS ORDERED: BUTORPHANOL 2 MG/ML INJ (J0595) IV PRN (10:55)
[2020-12-29] MEDS ORDERED: OXYTOCIN 30 UNITS IN 0.9% NaCl 500ML IV BAG (J2590) As Ordered ONE (15:18)
[2020-12-29] MEDS ORDERED: ACETAMINOPHEN 500 MG TAB PO PRN (16:10)
[2020-12-29] MEDS ORDERED: IBUPROFEN 800 MG TAB PO PRN (16:10)
[2020-12-29] MEDS ORDERED: IBUPROFEN 600MG TAB PO PRN (16:10)
[2020-12-29] MEDS ORDERED: MEASLES,MUMPS,RUBELLA VACCINE INJ (MMR-II) (90707) SC SCH (16:10)
[2020-12-29] MEDS ORDERED: DIBUCAINE 1% OINTMENT 30GM TOP PRN (16:10)
[2020-12-29] MEDS ORDERED: DOCUSATE SODIUM 100MG CAPSULE PO PRN (16:10)
[2020-12-29] MEDS ORDERED: ACETAMINOPHEN TAB 650MG DOSE (2X325MG) PO PRN (16:10)
[2020-12-29] MEDS ORDERED: RHOGAM 300 MCG (1500 IU) INJ (J2790) IM SCH (16:10)
--- NOTE | 2020-12-29 16:21 | DNPDOC ---
[facility] Delivery Note Delivery Note DATE OF DELIVERY: 12/29/20 PREDELIVERY DIAGNOSIS: 40w2d weeks' gestation, elective IOL POST DELIVERY DIAGNOSIS: Delivered. PROCEDURE: Spontaneous vaginal delivery SUPERVISOR CABINETMAKER: Dr. Elke Lafleur MD ANESTHESIA: none ESTIMATED BLOOD LOSS: 200 mL. FINDINGS: 8 pounds 5 ounces (3780g) female infant, Score 7/9 DELIVERY SUMMARY: Sania is a 30yo [id number] s/p uncomplicated at 40w2d after undergoing elective iol, delivering at 1533 on 12/29/20. IOL was started with cervical hui bulb and PV cytotec, and patient progressed without any further augmentation. At C/C/0, she began pushing and with just a couple pushes, infant's head delivered OA, restituted CHAVEZ. Left anterior shoulder delivered followed by posterior shoulder and corpus. Infant was vigorous with lusty cry, apgars 7/9, placed on maternal abdomen. After approximately 2 minutes, cord was clamped x2 and cut by FOB. With firm traction on the cord and uterine massage, placenta delivered spontaneously and intact with centrally inserted 3 vessel cord. Bimanual massage was performed with firming of the uterus. It seemed her IV may have infiltrated slightly, as patient endorsed pain with initial administration of IV pitocin- so it was stopped and given that hemostasis was noted and uterus remained firm, she received no pitocin. Inspection of vagina and perineum revealed a small/superficial right labial laceration and a small/superficial laceration just at the introitus. 3-0 vicryl suture used in 1 figure of 8 at each location to reapproximate the lacerations with complete hemostasis and excellent reapproximation. Another vaginal sweep performed with retrieval of only a small clot, and fundus remained firm at u-2cm. All counts correct x2. Mom and baby were doing well when I left the room. MD Ciarra Reina Katrina D MD December 29, 2020 16:21
[2020-12-30 06:00] VITALS: BP 129/81
[2020-12-30] MEDS ORDERED: PRENATAL VITAMINS CHEWABLE TABLET PO SCH (09:00)
[2020-12-30] MEDS ORDERED: IBUP80TA PO (12:02)
[2020-12-30] MEDS ORDERED: DOK1CAP7 PO (12:02)
--- NOTE | 2020-12-30 13:20 | IPNPDOC ---
Progress Note Date of Service: December 30, 2020 Day#: 1 Progress Note PPD 1 SUBJECT: Sania is a 30yo s/p uncomplicated at 40w2d after undergoing elective IOL at term, doing well day # 1. She has been ambulating, voiding spontaneously without issue and tolerating regular diet. Breast feeding without issue. Reports lochia is like a normal period. No f/c/n/v/CP/SOB. OBJECTIVE: VITAL SIGNS: Within normal limits, afebrile. Alert and oriented times three. Abdomen: Fundus firm at U-2. Soft, NTTP. Extremities: no pain with palpation of calves ASSESSMENT: Sania is a 30yo s/p uncomplicated at 40w2d after undergoing elective IOL at term, doing well day # 1. Vitals within normal limits, afebrile, hemodynamically stable with no evidence of infection. PLAN: 1. Discharge to home today. 2. Tylenol and Motrin for pain. 3. Regular diet 4. No heavy lifting, vaginal rest 6 weeks 5. Encourage breast feeding and ambulation. 6. Undecided on contraception, will consider more and re-address at 6wk PP vis it. Discussed BTL at length. 7. Routine PP visit in 6 weeks in clinic. 8. Discussed return precautions at length. Elke Lafleur MD VS, I&O, 24H, Fishbone Vital Signs/I&O Vital Signs Date Time Temp Pulse Resp B/P (MAP) Pulse Ox O2 Delivery O2 Flow Rate FiO2 12/30/20 06:00 97.5 86 18 129/81 (97) 12/29/20 09:00 Room Air I&O- Last 24 Hours up to 6 AM 12/30/20 06:00 Intake Total 15 ml Output Total 700 ml Balance -685 ml Elke Lafleur MD December 30, 2020 13:20
--- NOTE | 2020-12-30 13:22 | DS.PDOC ---
Discharge Summary General Date of Admission December 29, 2020 at 08:20 Date of Discharge December 30, 2020 Discharge Summary PROCEDURES PERFORMED DURING STAY: spontaneous vaginal delivery ADMITTING DIAGNOSES: 1. IOL at term DISCHARGE DIAGNOSES: 1. IOL at term COMPLICATIONS/CHIEF COMPLAINT: Induction Of Labor. HISTORY OF PRESENT ILLNESS/HOSPITAL COURSE: Sania is a 30yo s/p uncomplicated at 40w2d after undergoing elective IOL, doing well day # 1. She had a benign course and at time of discharge, vitals were within normal limits, afebrile, hemodynamically stable with no evidence of infection. DISCHARGE MEDICATIONS: Please see below. ALLERGIES: Please see below. PHYSICAL EXAMINATION ON DISCHARGE: VITAL SIGNS: Within normal limits, afebrile. Alert and oriented times three. Abdomen: Fundus firm at U-2. Soft, NTTP. Extremities: no pain with palpation of calves LABORATORY DATA: Please see below. DISCHARGE INSTRUCTIONS: 1. Discharge to home today. 2. Tylenol and Motrin for pain. 3. Regular diet 4. No heavy lifting, vaginal rest 6 weeks 5. Encourage breast feeding and ambulation. 6. Undecided on contraception, will consider more and re-address at 6wk PP visit 7. Routine PP visit in 6 weeks in clinic. 8. Discussed return precautions at length. DISCHARGE CONDITION: Stable TIME SPENT ON DISCHARGE: Greater than 20 minutes. Elke Lafleur MD Vital Signs/I&Os Vital Signs Date Time Temp Pulse Resp B/P (MAP) Pulse Ox O2 Delivery O2 Flow Rate FiO2 12/30/20 06:00 97.5 86 18 129/81 (97) 12/29/20 09:00 Room Air I&O- Last 24 Hours up to 6 AM 12/30/20 06:00 Intake Total 15 ml Output Total 700 ml Balance -685 ml Discharge Medications Scheduled Prenat 115/Iron Fum/Folic/Dss ( 19 Tablet) 1 Each Tablet, 1 TAB PO DAILY, (Reported) Scheduled PRN Docusate Sodium (Dok) 100 Mg Capsule, 100 MG PO BIDP PRN for CONSTIPATION Ibuprofen (Ibuprofen) 800 Mg Tablet, 800 MG PO Q8HP PRN for PAIN LEVEL 6-10 Miscellaneous Medications Cetirizine HCl/Pseudoephedrine (Zyrtec-D Tablet) 1 Each Tab.er.12h, 1 TAB PO, (Reported) Allergies Coded Allergies: Animal Dander (Verified Allergy, Mild, itchy, 12/29/20) SEASONAL ALLERGIES (Verified Allergy, Mild, itchy, 12/29/20) No Known Drug Allergies (Verified Allergy, Unknown, 04/19/19) Elke Lafleur MD December 30, 2020 13:22
[2020-12-30 18:00] VITALS: BP 137/82
== END 2020-12-30 20:00 | disposition home or self-care (01) | DRG 560 ==
LOC: M LDI 08:20 → M OBS 17:40
PROVIDERS: ADMIT Obstetrics & Gynecology; ATTEND Obstetrics & Gynecology
PROC: 10E0XZZ Delivery of Products of Conception, External Approach (ICD-10-PCS; principal; 2020-12-29)
PROC: 3E0P7GC Introduction of Other Therapeutic Substance into Female Reproductive, Via Natural or Artificial Opening (ICD-10-PCS; 2020-12-29)
PROC: 0HQ9XZZ Repair Perineum Skin, External Approach (ICD-10-PCS; 2020-12-29)
DX: O48.0 Post-term pregnancy (principal); Z3A.40 40 weeks gestation of pregnancy; Z37.0 Single live birth; O70.0 First degree perineal laceration during delivery

== ENCOUNTER → 2021-04-29 | Outpatient (CLI) | payer OTHER ==
[~2021-04-29] MED LIST changes: +DOK1CAP4 PO; +IBUP80TA PO; +ZYRTTAB8 PO
== END ==
LOC: M LABSMTC 09:27
PROVIDERS: ATTEND Anesthesiology
DX: Z01.818 Encounter for other preprocedural examination (principal); Z11.52 Encounter for screening for COVID-19

== ENCOUNTER → 2021-08-28 | Outpatient (CLI) | payer OTHER ==
[~2021-08-28] MED LIST changes: +ALBU8.5H INH
== END ==
LOC: M PLALAB 15:23
PROVIDERS: ATTEND Advanced Practice Midwife
DX: N93.9 Abnormal uterine and vaginal bleeding, unspecified (principal)

== ENCOUNTER → 2022-01-03 | Outpatient (CLI) | payer OTHER ==
[2022-01-03 13:37] LABS: BASO % 0.3 % (0.0-1.0); EOS # 0.2 10^3/uL (0.0-0.5); EOS % 2.5 % (0.0-3.0); HEMATOCRIT 36.7 % (36.0-47.0); HEMOGLOBIN 12.1 g/dl (12.0-15.5); LYMPH # 0.5 10^3/uL (1.5-5.0); LYMPH % 8.3 % (24.0-44.0); MEAN CORPUSCULAR HEMOGLOBIN 30.6 pg (27.0-33.0); MEAN CORPUSCULAR VOLUME 92.9 fl (80.0-96.0); MONO # 0.4 10^3/uL (0.0-0.8); MONO % 6.5 % (2.0-8.0); NEUTROPHILS # 5.2 10^3/uL (1.5-8.5); NEUTROPHILS % 81.9 % (36.0-66.0); PLATELET COUNT, AUTOMATED 187 10^3/uL (150-450); RED BLOOD COUNT 3.95 10^6/uL (4.00-5.40); WHITE BLOOD COUNT 6.3 10^3/uL (4.0-10.0)
[2022-01-03 16:04] LABS: GC DNA AMPLIFICATION NEGATIVE (NEGATIVE)
[2022-01-03 21:36] LABS: HEPATITIS C VIRUS ABY INDEX 0.1 INDEX (<0.8); HIV 1&2 SCREEN CENTAUR NEGATIVE (NEGATIVE)
== END ==
LOC: M PLALAB 11:50
PROVIDERS: ATTEND Advanced Practice Midwife
DX: Z34.91 Encounter for supervision of normal pregnancy, unspecified, first trimester (principal); Z3A.00 Weeks of gestation of pregnancy not specified

== ENCOUNTER → 2022-01-29 | Outpatient (CLI) | payer OTHER | LOC: M WHC 14:22 | PROVIDERS: ATTEND Specialist | DX: Z34.82 Encounter for supervision of other normal pregnancy, second trimester (principal) ==

== ENCOUNTER → 2022-03-02 | Outpatient (CLI) | payer OTHER ==
[2022-03-02 10:46] LABS: HEMATOCRIT 34.2 % (36.0-47.0); HEMOGLOBIN 11.4 g/dl (12.0-15.5); MEAN CORPUSCULAR HEMOGLOBIN 31.2 pg (27.0-33.0); MEAN CORPUSCULAR HGB CONC 33.3 g/dl (32.0-36.5); MEAN CORPUSCULAR VOLUME 93.7 fl (80.0-96.0); PLATELET COUNT, AUTOMATED 194 10^3/uL (150-450); RED BLOOD COUNT 3.65 10^6/uL (4.00-5.40); WHITE BLOOD COUNT 6.3 10^3/uL (4.0-10.0)
== END ==
LOC: M LAB 09:18
PROVIDERS: ATTEND Specialist
DX: Z34.82 Encounter for supervision of other normal pregnancy, second trimester (principal)

== ENCOUNTER → 2022-03-02 | Outpatient (CLI) | payer OTHER ==
[2022-03-02 11:15] LABS: ALBUMIN 2.7 GM/DL (3.2-5.2); ALT/SGPT 13 U/L (12-78); BILIRUBIN,TOTAL 0.3 MG/DL (0.2-1.0); BLOOD UREA NITROGEN 8 MG/DL (7-18); CALCIUM LEVEL 8.2 MG/DL (8.5-10.1); CARBON DIOXIDE LEVEL 25 MEQ/L (21-32); CHLORIDE LEVEL 108 MEQ/L (98-107); CREATININE FOR GFR 0.52 MG/DL (0.55-1.30); GLOMERULAR FILTRATION RATE > 60.0 (>60); GLUCOSE, FASTING 110 MG/DL (70-100); POTASSIUM SERUM 3.9 MEQ/L (3.5-5.1); SODIUM LEVEL 140 MEQ/L (136-145); TOTAL PROTEIN 6.6 GM/DL (6.4-8.2)
[2022-03-03 11:39] LABS: TOTAL 25(OH) VITAMIN D 20.6 NG/ML (30.0-100.0)
== END ==
LOC: M LAB 09:15
PROVIDERS: ATTEND Physician Assistant
DX: Z13.228 Encounter for screening for other metabolic disorders (principal)

== ENCOUNTER → 2022-03-04 | Outpatient (CLI) | payer OTHER | LOC: M WHC 15:15 | PROVIDERS: ATTEND Specialist | DX: Z36.2 Encounter for other antenatal screening follow-up (principal); Z3A.25 25 weeks gestation of pregnancy ==

== ENCOUNTER → 2022-05-10 | Outpatient (CLI) | payer OTHER ==
[2022-05-10 09:17] LABS: BASO % 0.4 % (0.0-1.0); EOS # 0.1 10^3/uL (0.0-0.5); EOS % 2.5 % (0.0-3.0); HEMATOCRIT 34.8 % (36.0-47.0); HEMOGLOBIN 11.5 g/dl (12.0-15.5); LYMPH # 1.6 10^3/uL (1.5-5.0); LYMPH % 30.9 % (24.0-44.0); MEAN CORPUSCULAR HEMOGLOBIN 29.9 pg (27.0-33.0); MEAN CORPUSCULAR VOLUME 90.4 fl (80.0-96.0); MONO # 0.5 10^3/uL (0.0-0.8); MONO % 8.6 % (2.0-8.0); NEUTROPHILS % 57.2 % (36.0-66.0); PLATELET COUNT, AUTOMATED 175 10^3/uL (150-450); RED BLOOD COUNT 3.85 10^6/uL (4.00-5.40); WHITE BLOOD COUNT 5.3 10^3/uL (4.0-10.0)
[2022-05-10 09:58] LABS: BLOOD UREA NITROGEN 7 MG/DL (7-18); CALCIUM LEVEL 8.4 MG/DL (8.5-10.1); CARBON DIOXIDE LEVEL 26 MEQ/L (21-32); CHLORIDE LEVEL 106 MEQ/L (98-107); GLOMERULAR FILTRATION RATE > 60.0 (>60); GLUCOSE, FASTING 81 MG/DL (70-100); SODIUM LEVEL 137 MEQ/L (136-145)
== END ==
LOC: M LAB 08:40
PROVIDERS: ATTEND Physician Assistant
DX: E55.9 Vitamin D deficiency, unspecified (principal)

== ENCOUNTER → 2022-05-19 | Outpatient (REF) | payer OTHER | LOC: M SFHCWAGY 10:07 | PROVIDERS: ATTEND Advanced Practice Midwife | DX: Z34.93 Encounter for supervision of normal pregnancy, unspecified, third trimester (principal) ==

== ENCOUNTER 2022-06-14 07:45 | Inpatient (IN) | payer OTHER ==
[~2022-06-14] VITALS: Ht 160 cm; Wt 86.4 kg
[2022-06-14] VITALS (8 sets, daily range): BP systolic 121–132; BP diastolic 59–89
[2022-06-14] MEDS ORDERED: PRENTAB9 PO (08:07)
[2022-06-14] MEDS ORDERED: HOME MED LIST COMPLETE! XX SCH (08:10)
[2022-06-14] MEDS ORDERED: OXYTOCIN DRIP 30 UNITS in IV 1 EA IV PRN (08:35)
[2022-06-14] MEDS ORDERED: LIDOCAINE 1% MDV 20ML VIAL INFIL PRN (08:35)
[2022-06-14 08:54] LABS: HEMATOCRIT 35.9 % (36.0-47.0); HEMOGLOBIN 11.9 g/dl (12.0-15.5); MEAN CORPUSCULAR HEMOGLOBIN 29.4 pg (27.0-33.0); MEAN CORPUSCULAR HGB CONC 33.1 g/dl (32.0-36.5); MEAN CORPUSCULAR VOLUME 88.6 fl (80.0-96.0); PLATELET COUNT, AUTOMATED 166 10^3/uL (150-450); RED BLOOD COUNT 4.05 10^6/uL (4.00-5.40); WHITE BLOOD COUNT 5.2 10^3/uL (4.0-10.0)
[2022-06-14] MEDS: miSOPROStol 50MCG 1/2 TABLET PO SCH ×2 (11:03→15:10)
[2022-06-14] MEDS ORDERED: OXYTOCIN DRIP 30 UNITS in IV 1 EA IV SCH (20:55)
[2022-06-14] MEDS: LR 1,000 ML IV SCH (20:55)
[2022-06-15] MEDS ORDERED: DIBUCAINE 1% OINTMENT 30GM TOP PRN (01:00)
[2022-06-15] MEDS ORDERED: ACETAMINOPHEN 500 MG TAB PO PRN (01:00)
[2022-06-15] MEDS ORDERED: DOCUSATE SODIUM 100MG CAPSULE PO PRN (01:00)
[2022-06-15] MEDS ORDERED: OXYTOCIN DRIP 30 UNITS in IV 1 EA IV SCH (01:00)
[2022-06-15] MEDS ORDERED: ACETAMINOPHEN TAB 650MG DOSE (2X325MG) PO PRN (01:00)
[2022-06-15] MEDS ORDERED: RHOGAM 300 MCG (1500 IU) INJ (J2790) IM SCH (01:00)
[2022-06-15] MEDS ORDERED: IBUPROFEN 600MG TAB PO PRN (01:00)
[2022-06-15] MEDS ORDERED: METHYLERGONOVINE MALEATE 0.2 MG TAB PO PRN (01:00)
[2022-06-15] MEDS ORDERED: ANUSOL HC CREAM 30GM TOP PRN (01:00)
[2022-06-15] MEDS ORDERED: IBUPROFEN 800 MG TAB PO PRN (01:00)
[2022-06-15] MEDS ORDERED: MOM 30ML SUSPENSION UDC PO PRN (01:00)
[2022-06-15 02:00] VITALS: BP 118/68
[2022-06-15] MEDS: LR 1,000 ML IV SCH ×2 (04:55→12:55)
[2022-06-15 05:40] VITALS: BP 116/67
[2022-06-15] MEDS: PRENATAL VITAMINS CHEWABLE TABLET PO SCH (08:37)
[2022-06-15 18:00] VITALS: BP 120/74
[2022-06-16 05:59] VITALS: BP 128/66
[2022-06-16] MEDS: PRENATAL VITAMINS CHEWABLE TABLET PO SCH (08:42)
[2022-06-16] MEDS ORDERED: IBUP80TA PO (11:02)
[2022-06-16] MEDS ORDERED: ACET-683 PO (11:02)
[2022-06-17] MEDS ORDERED: MEASLES,MUMPS,RUBELLA VACCINE INJ (MMR-II) (90707) SC.IMMUN ONE (09:00)
== END 2022-06-16 12:20 | disposition home or self-care (01) | DRG 560 ==
LOC: M LDI 07:45 → M OBS 06-15 02:00
PROVIDERS: ADMIT Obstetrics & Gynecology; ATTEND Obstetrics & Gynecology
PROC: 3E033VJ Introduction of Other Hormone into Peripheral Vein, Percutaneous Approach (ICD-10-PCS; 2022-06-14)
PROC: 10E0XZZ Delivery of Products of Conception, External Approach (ICD-10-PCS; principal; 2022-06-15)
DX: O48.0 Post-term pregnancy (principal); Z37.0 Single live birth; Z3A.40 40 weeks gestation of pregnancy

== ENCOUNTER → 2022-10-06 | Outpatient (CLI) | payer OTHER ==
[~2022-10-06] MED LIST changes: +ACET-683 PO; +PRENTAB9 PO
== END ==
LOC: M LABSMTC 09:38
PROVIDERS: ATTEND Anesthesiology
DX: Z01.812 Encounter for preprocedural laboratory examination (principal); Z11.52 Encounter for screening for COVID-19

== ENCOUNTER 2022-10-10 10:21 | Day surgery (SDC) | payer OTHER ==
[~2022-10-10] VITALS: Ht 160 cm; Wt 80.5 kg
[~2022-10-10 10:21] MED LIST changes: +MONT-5 PO; -SING10TA32 PO
[2022-10-10] MEDS ORDERED: LIDOCAINE 1% SDV 5ML VIAL SC PRN (11:00)
[2022-10-10] MEDS ORDERED: LR 1,000 ML IV SCH ×2 (11:00→14:30)
[2022-10-10] MEDS ORDERED: ROCURONIUM BROMIDE 50MG/5ML VIAL As Ordered ONE ×2 (11:41→12:52)
[2022-10-10] MEDS ORDERED: LIDOCAINE 2% 100MG/5ML SDV (FOR ANES.) As Ordered ONE ×2 (11:41→12:52)
[2022-10-10] MEDS ORDERED: propofoL 200 MG/20 ML VIAL As Ordered ONE ×2 (11:41→12:52)
[2022-10-10] MEDS ORDERED: ONDANSETRON 4MG 2ML VIAL As Ordered ONE ×2 (11:42→14:00)
[2022-10-10] MEDS ORDERED: MIDAZOLAM INJ 2MG/2ML VIAL As Ordered ONE (12:53)
[2022-10-10] MEDS ORDERED: fentaNYL 100 MCG/2 ML INJECTION As Ordered ONE (12:53)
[2022-10-10] MEDS ORDERED: BUPIVACAINE HCL 0.25% 30ML VIAL As Ordered ONE (13:16)
[2022-10-10] MEDS ORDERED: SCOPOLAMINE 1MG TRANSDERMAL PATCH TOP ONE (13:20)
[2022-10-10] MEDS ORDERED: SCOPOLAMINE 1MG TRANSDERMAL PATCH As Ordered ONE (13:32)
[2022-10-10] MEDS ORDERED: PERC5TAB12 PO (13:45)
[2022-10-10] MEDS ORDERED: fentaNYL 250 MCG/5 ML INJECTION As Ordered ONE (13:57)
[2022-10-10] MEDS ORDERED: KETOROLAC 60MG 2ML VIAL As Ordered ONE (14:00)
[2022-10-10] MEDS ORDERED: METOCLOPRAMIDE INJ 10MG/2ML VIAL As Ordered ONE (14:00)
[2022-10-10] MEDS ORDERED: SUGAMMADEX SODIUM 500 MG/5 ML VIAL (BRIDION) As Ordered ONE (14:11)
[2022-10-10] MEDS ORDERED: fentaNYL 100 MCG/2 ML INJECTION IV PRN (14:30)
[2022-10-10] MEDS ORDERED: HYDROMORPHONE HCL 0.5 MG/ 0.5 ML SYRINGE IV PRN (14:30)
[2022-10-10] MEDS ORDERED: ONDANSETRON 4MG 2ML VIAL IV PRN (14:30)
[2022-10-10] MEDS ORDERED: METOCLOPRAMIDE INJ 10MG/2ML VIAL IV PRN (14:30)
[2022-10-10] MEDS ORDERED: oxyCODONE 5MG TAB PO PRN (14:30)
[2022-10-10 16:14] VITALS: BP 133/75
== END 2022-10-10 16:20 | disposition home or self-care (01) ==
LOC: M SDC 10:21
PROVIDERS: ATTEND Obstetrics & Gynecology
DX: Z30.2 Encounter for sterilization (principal); F41.9 Anxiety disorder, unspecified; F32.9 Major depressive disorder, single episode, unspecified; J45.990 Exercise induced bronchospasm; J30.81 Allergic rhinitis due to animal (cat) (dog) hair and dander; Z79.899 Other long term (current) drug therapy
CPT/HCPCS: 36415; 58661; 81025; 86850; 86900; 86901; 88302; J1100; J2250; J2405; J2765; J3010

== ENCOUNTER → 2023-03-14 | Outpatient (CLI) | payer OTHER ==
[~2023-03-14] MED LIST changes: +PERC5TAB12 PO
[2023-03-14 09:42] LABS: HEMATOCRIT 41.6 % (36.0-47.0); HEMOGLOBIN 13.3 g/dl (12.0-15.5); MEAN CORPUSCULAR HEMOGLOBIN 29.5 pg (27.0-33.0); MEAN CORPUSCULAR VOLUME 92.2 fl (80.0-96.0); PLATELET COUNT, AUTOMATED 213 10^3/uL (150-450); RED BLOOD COUNT 4.51 10^6/uL (4.00-5.40)
[2023-03-14 10:31] LABS: IRON (FE) 92 UG/DL (50-170); PERCENT SATURATION 28.2 % (13.2-45.0); TOTAL IRON BINDING CAPACITY 326 UG/DL (250-425)
[2023-03-14 10:35] LABS: ALBUMIN 4.2 G/DL (3.2-5.2); ALKALINE PHOSPHATASE 51 U/L (46-116); ALT/SGPT 18 U/L (7.0-40); AST/SGOT 10 U/L (<34); BILIRUBIN,TOTAL 0.8 MG/DL (0.3-1.2); BLOOD UREA NITROGEN 14 MG/DL (9-23); CARBON DIOXIDE LEVEL 28 MMOL/L (20-31); CHLORIDE LEVEL 104 MMOL/L (98-107); CHOLESTEROL LEVEL 175 MG/DL (<200); CHOLESTEROL RISK RATIO 3.54 (<5); CREATININE FOR GFR 0.65 MG/DL (0.55-1.30); FERRITIN 27.6 NG/ML (7.3-270.7); GLOMERULAR FILTRATION RATE > 60.0 (>60); GLUCOSE, FASTING 90 MG/DL (60-100); HDL CHOLESTEROL 49.4 MG/DL (>40); LDL CHOLESTEROL 110.2 MG/DL (<100); NON-HDL-C 125.6 MG/DL; POTASSIUM SERUM 4.5 MMOL/L (3.5-5.1); SODIUM LEVEL 138 MMOL/L (136-145); TOTAL 25(OH) VITAMIN D 30.7 NG/ML (20.0-100.0); TOTAL PROTEIN 7.3 G/DL (5.7-8.2); TRIGLYCERIDES LEVEL 77 MG/DL (<150)
== END ==
LOC: M LAB 08:41
PROVIDERS: ATTEND Physician Assistant
DX: D64.9 Anemia, unspecified (principal)